=== PATIENT | female | born 2000 | race Caucasian/White ===

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

== ENCOUNTER 2022-01-20 15:51 | Emergency (ER) | payer OTHER ==
[2022-01-20 15:58] VITALS: BP 145/85; PULSE 98; TEMP 98.1; BMI 42.0
[2022-01-20] MEDS ORDERED: DEXAMETHASONE SOD PHOSPHATE 10 MG/1 ML VIAL ONE (16:52)
[2022-01-20] MEDS ORDERED: DEXAMETHASONE LIQUID 0.5 MG/5 ML PO ONE (16:59)
[2022-01-21] MEDS ORDERED: predniSONE 20 MG TABLET (UD) PO ONE (16:51)
== END 2022-01-20 18:19 | disposition home or self-care (01) ==
LOC: JERFT 15:51 → JER 15:51 → JERFT 18:19
PROC: 3E023GC Introduction of Other Therapeutic Substance into Muscle, Percutaneous Approach (ICD-10-PCS; principal; 2022-01-20)
DX: T78.40XA Allergy, unspecified, initial encounter (principal)
CPT/HCPCS: 99284-25

== ENCOUNTER 2022-03-23 18:20 | Emergency (ER) | payer OTHER ==
[2022-03-23 18:41] VITALS: BP 128/86; PULSE 96; RESP 19; TEMP 97.9; BMI 41.5
[2022-03-23] MEDS ORDERED: IBUPROFEN 600 MG TABLET (FP) PO ONE (18:54)
== END 2022-03-23 19:55 | disposition home or self-care (01) ==
LOC: JERFT 18:20
DX: S93.492A Sprain of other ligament of left ankle, initial encounter (principal); X50.0XXA Overexertion from strenuous movement or load, initial encounter
CPT/HCPCS: 73610-TC-LT-FY; 73630-TC-LT; 99283-25